=== PATIENT | female | born 1950 | race Caucasian/White ===

== ENCOUNTER 2016-11-23 05:11 | Emergency (ER) | payer MEDICARE ==
[~2016-11-23] VITALS: Ht 172.7 cm; Wt 86.4 kg
[2016-11-23 05:14] VITALS: BP 153/101; PULSE 90; RESP 18; O2SAT 98
[2016-11-23] MEDS ORDERED: 0.9% Sodium Chloride 1,000 ML IV ONE (05:32)
[2016-11-23] MEDS ORDERED: HYDROmorphone 0.5 mg/0.5 mL iSecure Syringe IVPUSH PRN (05:35)
[2016-11-23] MEDS ORDERED: Hydrocortisone 50 mg/mL 2 mL Inj IVPUSH ONE (05:35)
[2016-11-23] MEDS: Ondansetron 2 mg/mL 2 mL Inj IVPUSH PRN ×2 (05:52→06:23)
--- NOTE | 2016-11-23 06:09 | ED.REPORT ---
HPI-Abd Pain F 40 and Over Date of Service Nov 23, 2016 ED Provider: Domo Randhawa MD 66 year old female with a history of adrenal cancer on daily steroid replacement therapy, uterine fibroids, cholecystectomy, splenectomy, and liver lobe removal presents to the ER accompanied by her complaining of abdominal pain since last night, with vomiting onset at 04:00 today. History of similar symptoms in the past that seems to be elicited by a combination of stress and dietary changes. Associated symptom of loose stool yesterday. Symptoms have been treated with prescribed oxycodone with no relief. Patient denies fever, cough, UTI symptoms, and abnormal SOB. She states that she has been instructed by her oncologist to visit the ER if she develops vomiting. Nursing Notes Stated Complaint: VOMITING,ADRENAL INSUFFIENCY Chief Complaint: Female Abdominal Pain Nursing Notes Reviewed: Yes Allergies: Coded Allergies: No Known Allergies (Unverified , 11/23/16) General Time Seen by MD: 06:08 Chief Complaint Abdominal pain Hx Obtained From: Patient Arrived By: Walk-in Sudden in Onset?: No Onset Occurred: Yesterday Symptom Duration: Since onset Location: : Diffuse Quality: Painful Severity: Current: Moderate Severity: Maximum: Moderate Associated with: Reports: Nausea, Vomiting, Denies: Dysuria, Fever, Urinary tract symptoms Pertinent Negative: Pt denies other symptoms Context Related History: Reports: Abdominal surgery Similar Sx Previous: Yes Past Medical History Past Medical History Adrenal Cancer on steroid replacement therapy Uterine fibroids Reports: Hypertension Past Surgical History Splenectomy Liver lobe removal Right adrenal gland removal Right lung removal Reports: Cholecystectomy Smoking History Unknown if Ever Smoker Social History Alcohol Use: "Social" Other Social History: Good social support, Ambulatory Status Independent Review of Systems +Loose Stool Constitutional: Denies: Chills, Fever Respiratory: Denies: Non-productive cough Cardiovascular: Denies: Chest pain GI: Reports: Abdominal pain, Nausea, Vomiting, Denies: Constipation, Diarrhea Female: Denies: Dysuria, Flank pain, Urinary frequency, Urinary urgency Complete sys rev & neg: except as marked. Physical Exam Vital Signs Vital Signs (First) Date Time Temp Pulse Resp B/P Pulse Ox O2 Delivery O2 Flow Rate FiO2 11/23/16 05:14 36.0 90 18 153/101 98 Room Air Initial VS: Reviewed Head / Eyes: Atraumatic, Normocephalic Neck: Supple, Non-tender, Full range of motion Extremities: Vascular intact, Neuro intact, No swelling, No tenderness Skin: Warm, Dry, No cyanosis Neurologic: Alert, Oriented, Nonfocal General/Constitutional: Awake, Alert, Well developed, Well nourished Respiratory / Chest: Breath sounds NL, Breath sounds = bilat, No respiratory distress, No rales, No rhonchi, No wheezing, No stridor Cardiovascular: Heart rate NL, Regular rhythm, Heart sounds NL, Peripheral circulation NL Abdomen: Non-tender, No guarding, No rebound, No distention Palpable fullness in right pelvis and RLQ (patient attributes this to chronic fibroids) Back: Inspection NL, Non-tender, No CVA tenderness Interpretation & Diagnostics Lab Results Interpretation Result Diagram: 11/23/16 0550 11/23/16 0550 Test 11/23/16 05:50 11/23/16 07:19 White Blood Count 19.1th/mm3 (3.8-10.1) Red Blood Count 4.63mil/mm3 (3.90-5.20) Hemoglobin 15.7g/dL (12.0-15.6) Hematocrit 46.2% (35.0-46.0) Mean Corpuscular Volume 99.8fL (81-100) Mean Corpuscular Hemoglobin 33.9pg (27.0-35.0) Mean Corpuscular Hemoglobin Concent 34.0% (32.0-37.0) Red Cell Distribution Width 14.5% (12.3-15.4) Platelet Count 266bil/L (150-400) Neutrophils (%) (Auto) 89.5% (40-74) Lymphocytes (%) (Auto) 5.2% (14-46) Monocytes (%) (Auto) 4.3% (4-12) Eosinophils (%) (Auto) 0.5% (0-5) Basophils (%) (Auto) 0.2% (0-3) Sodium Level 143mEq/L (134-144) Potassium Level 4.2mEq/L (3.5-5.2) Chloride Level 100mEq/L (97-108) Carbon Dioxide Level 26mmol/L (18-29) Blood Urea Nitrogen 21mg/dL (8-27) Creatinine 1.09mg/dL (0.57-1.00) Estimat Glomerular Filtration Rate 72mL/min (>59) Glucose Level 146mg/dL (60-99) Calcium Level 10.6mg/dL (8.5-10.1) Magnesium Level 1.9mg/dL (1.6-2.6) Total Bilirubin 0.6mg/dL (0.0-1.2) Aspartate Amino Transf (AST/SGOT) 55U/L (0-50) Alanine Aminotransferase (ALT/SGPT) 42U/L (0-32) Alkaline Phosphatase 99U/L (25-165) Total Protein 8.3g/dL (6.4-8.4) Albumin 4.5g/dL (3.4-5.0) Lipase 13U/L (13-60) Hold Urine Received (Received) CT Abd / Pelvis Interpretation CT CHEST, ABDOMEN AND PELVIS WITH CONTRAST IMPRESSION: 1. No acute intra-abdominal findings. The appendix is not visualized; however there are no ancillary findings such as free right lower quadrant fluid or fat stranding to suggest acute appendicitis. 2. Large uterine fibroid. 3. Questionable hepatic hypodensity as described above. Given the history of adrenal cancer, hepatic metastasis cannot be excluded. If further characterization is warranted, multiphase hepatic protocol CT is recommended. Dictated by: Shanthi Sequeira M.D. on 11/23/2016 at 8:48 Approved by: Shatnhi Sequeira M.D. on 11/23/2016 at 9:14 Study type: Abdominal CT IV contrast Interpretation / Wet Read by: Interpret - Radiologist Re-Eval/Medical Decision Med Decision/Clinical Course Does not seem to represent an adrenal crisis, patients not hypotensive and after a dose of hydrocortisone and some Zofran she is feeling better. Leukocytosis is present without significant acute abnormality on CAT scan. As the patient is from out of town copies of her laboratory studies and imaging studies including a CD were given. Return and follow-up precautions given. Source of Hx: Old records Re-Evaluation/Progress #1: Time of Eval: 07:09 Re-Evaluation/Progress Note: Vomiting resolved. Strongly encouraged CT scan due to white cell count. Patient will consider. Re-Evaluation/Progress #2: Time of Eval: 07:28 Re-Evaluation/Progress Note: Patient amenable to CT. Re-Evaluation/Progress #3: Time of Eval: 09:38 Re-Evaluation/Progress Note: Discussed lab and CT results and plan to discharge. Patient is amenable to the plan. Return precautions given. All other questions addressed. Consultation : Referral / Consult Name: Shanthi Sequeira MD Consulted With: On-call physician (Radiology) Call Returned at: 09:07 Note: Nothing acute on CT. Counseled Regarding: Diagnosis, Lab results, Need for follow-up, When/why to return to ED Discharge & Departure Primary Impression: Abdominal pain Abdominal location: generalized Qualified Code: R10.84 - Generalized abdominal pain Disposition: Home Discharge Condition All VS Reviewed: Yes Condition: Stable Additional Instructions: Your CT did not show any new findings. I do not believe there is any immediately dangerous cause for your symptoms at this time. Continue your medications. Return to the ER if you develop worsening or concerning symptoms. Referrals: [facility] (PCP) [facility] Marcelina Attestation Portions of this note were transcribed by Ty Salgado. I, Dr. Wolfe, personally performed the history, physical exam and medical decision-making; I reviewed and confirmed the accuracy of the information in the transcribed note. Signed by: Marcelina Donovan, 11/23/2016 and 09:43 copies to: [facility] Eliezer Wolfe DO Nov 23, 2016 06:09 TY SALGADO Nov 23, 2016 06:13
[2016-11-23 06:11] LABS: BASOPHILS % (AUTO) 0.2 % (0-3); EOSINOPHILS % (AUTO) 0.5 % (0-5); MONOCYTES % (AUTO) 4.3 % (4-12); Mean Corpuscular Hemoglobin 33.9 pg (27.0-35.0); Mean Corpuscular Volume 99.8 fL (81-100); NEUTROPHILS % (AUTO) 89.5 % (40-74); Platelet Count 266 bil/L (150-400)
[2016-11-23 06:48] LABS: Magnesium 1.9 mg/dL (1.6-2.6)
--- NOTE | 2016-11-23 09:16 | DRSVH ---
PROCEDURE: CT CHEST, ABDOMEN AND PELVIS WITH CONTRAST ([id number]) INDICATIONS: vomiting, wbc 19k, adrenal CA w mets TECHNIQUE: After the administration of intravenous contrast, 5 mm thick sections acquired from the lung apices t o the symphysis. 5 mm coronal and sagittal reformats were performed, with additional 7 mm MIP reform ats through the lungs. For radiation dose reduction, the following was used: automated exposure con trol, adjustment of mA and/or kV according to patient size. COMPARISON: None. FINDINGS: Image quality: Excellent. CHEST: Lungs and pleura: Patient is status post right pneumonectomy. Mediastinum: Heart size is normal. No pericardial effusion. No mediastinal or hilar adenopathy by size criteria. Thoracic aorta and central pulmonary arteries are normal in size. Esophagus is amy l in caliber. No hiatal hernia. Chest wall: No axillary or supraclavicular adenopathy by size criteria. Thyroid gland is unremarkab le. ABDOMEN: Solid organs: Liver and spleen are normal in size and overall enhancement. A 13 mm diameter ill-defi alicia hypodensity is present within hepatic lobe VII (series 605, image 96). Gallbladder is surgically absent. Biliary system is non dilated. The pancreas is nonvisualized and may be surgically absent or atrophic. The bilateral adrenal glands are surgically absent. The right kidney demonstrates normal s ize and enhancement. The left kidney is markedly atrophic. Peritoneum and bowel: Bowel loops demonstrate normal wall thickness and caliber. The appendix is not visualized; however there is no discrete right lower quadrant fluid or fat stranding to suggest acut e appendicitis. No free fluid or air. Nodes and vessels: No retroperitoneal or mesenteric adenopathy by size criteria. Aorta and inferior vena cava are normal in size. There are scattered atheromatous calcifications throughout the aorta and iliac arteries bilaterally. Miscellaneous: No ventral hernias. PELVIS: Genitourinary: The bladder is partially fluid-filled and wall thickness is normal. There is a heterog eneously enhancing 13.4 x 14.5 x 10.7 cm uterine mass which likely represents a large uterine fibroid . There is trace free fluid around the uterus. The ovaries are not definitely visualized. Miscellaneous: No inguinal hernias or adenopathy. Bones: No suspicious bony lesions. No vertebral body compression fractures. Severe degenerative ch anges are present throughout the lumbar spine. IMPRESSION: 1. No acute intra-abdominal findings. The appendix is not visualized; however there are no ancillary findings such as free right lower quadrant fluid or fat stranding to suggest acute appendicitis. 2. Large uterine fibroid. 3. Questionable hepatic hypodensity as described above. Given the history of adrenal cancer, hepatic metastasis cannot be excluded. If further characterization is warranted, multiphase hepatic protocol CT is recommended. Dictated by: Shanthi Sequeira M.D. on 11/23/2016 at 8:48 Approved by: Shanthi Sequeira M.D. on 11/23/2016 at 9:14
[2016-11-23 09:52] VITALS: BP 156/95; PULSE 82; RESP 16; O2SAT 96
== END 2016-11-23 09:53 | disposition home or self-care (01) ==
LOC: SED 05:11
DX: R10.84 Generalized abdominal pain (principal); I10 Essential (primary) hypertension
CPT/HCPCS: 36415; 71260; 74177; 80053; 83690; 83735; 85025; 96361; 96374; 96375; 96376; 99285; J1170; J1720; J2405; J7030; Q9967